=== PATIENT | male | born 1980 | race Caucasian/White ===

== ENCOUNTER 2024-03-13 17:18 | Emergency (ER) | payer OTHER ==
[~2024-03-13] VITALS: Ht 172.7 cm; Wt 91.0 kg
[~2024-03-13 17:18] MED LIST: INSU100V49 SUBCUT; METF-873 PO
[2024-03-13 17:27] VITALS: O2SAT 99
[2024-03-13 17:31] VITALS: BP 145/89; PULSE 81; RESP 18; TEMP 98.6
== END 2024-03-13 19:07 | disposition home or self-care (01) ==
LOC: ER 17:18
DX: Z45.2 Encounter for adjustment and management of vascular access device (principal); E11.9 Type 2 diabetes mellitus without complications; Z98.890 Other specified postprocedural states
CPT/HCPCS: 99281